=== PATIENT | male | born 1945 | race Asian ===

== ENCOUNTER 2022-10-23 18:18 | Emergency (ER) | payer OTHER ==
[2022-10-23 18:31] VITALS: BP 149/77; PULSE 98; RESP 18; TEMP 100.4; BMI 22.7
[2022-10-23] MEDS ORDERED: ACETAMINOPHEN 500 MG TABLET (FP) PO ONE (19:45)
[2022-10-23] MEDS ORDERED: ACETAMINOPHEN 325 MG TABLET (FP) ONE (19:51)
== END 2022-10-23 20:31 | disposition home or self-care (01) ==
LOC: JER 18:18
DX: R05.9 Cough, unspecified (principal); J02.9 Acute pharyngitis, unspecified; R50.9 Fever, unspecified; U07.1 COVID-19
CPT/HCPCS: 0241U-QW; 71046-TC-FY; 99284-25